=== PATIENT | female | born 1970 | race Caucasian/White ===

== ENCOUNTER 2016-11-13 17:19 | Emergency (ER) | payer SELFPAY ==
[~2016-11-13] VITALS: Ht 152.4 cm; Wt 55.0 kg
[~2016-11-13 17:19] MED LIST: [UNRECOGNIZED DRUG - REMARK]
[2016-11-13] MEDS ORDERED: HYDROmorphone 1 MG/ML, 1ML IVPush PRN (18:00)
[2016-11-13] MEDS ORDERED: ONDANSETRON 2MG/ML, 2ML IVPush ONE (18:00)
[2016-11-13] MEDS ORDERED: SODIUM CHLORIDE 0.9% 1,000ML IVBOLUS ONE (18:00)
[2016-11-13] MEDS ORDERED: SODIUM CHLORIDE FLUSH 10ML SYR IVF ONE (18:00)
[2016-11-13] MEDS ORDERED: HYDROmorphone 1 MG/ML, 1ML ONE (18:08)
[2016-11-13] MEDS ORDERED: ONDANSETRON 2MG/ML, 2ML ONE (18:08)
[2016-11-13 18:19] LABS: PH, VENOUS 7.371 pH (7.320-7.420)
[2016-11-13 18:21] LABS: BLOOD UREA NITROGEN 10 mg/dL (7-18)
[2016-11-13 18:29] LABS: PATH.CAST-FLAG NOT PRESENT; SPERM-FLAG NOT PRESENT; SRC-FLAG NOT PRESENT; XTAL-FLAG NOT PRESENT; YLC-FLAG NOT PRESENT
[2016-11-13] MEDS ORDERED: OMNIPAQUE 350 MG/ML, 100ML BOTTLE ONE (18:57)
[2016-11-13 19:23] VITALS: BP 137/66
== END 2016-11-13 20:11 | disposition home or self-care (01) ==
LOC: ED 20:01
DX: K12.0 Recurrent oral aphthae (principal); N30.90 Cystitis, unspecified without hematuria; E11.65 Type 2 diabetes mellitus with hyperglycemia
CPT/HCPCS: 36415; 70491; 80048; 81001; 82010; 82040; 82803; 85025; 87086; 87147; 96361; 96374; 96375; 99285; J1170; J2405; J7030; Q9967

== ENCOUNTER 2017-08-01 12:42 | Emergency (ER) | payer OTHER ==
[~2017-08-01] VITALS: Ht 152.4 cm; Wt 57.2 kg
[2017-08-01] MEDS ORDERED: LINA5TAB PO (14:39)
[2017-08-01] MEDS ORDERED: LISI1TAB5 PO (14:39)
[2017-08-01 15:12] LABS: BASOPHILS # (AUTO) 0.05 x10^3/uL (0-0.1); BASOPHILS % (AUTO) 1 % (0-1); EOSINOPHILS # (AUTO) 0.19 x10^3/uL (0-0.4); EOSINOPHILS % (AUTO) 3 % (1-7); LYMPHOCYTES # (AUTO) 1.71 x10^3/uL (1-3.4); LYMPHOCYTES % (AUTO) 23 % (22-44); MD NO; MEAN CORPUSCULAR HGB CONC 33.9 g/dL (32.4-35.8); MEAN CORPUSCULAR VOLUME 88.8 fL (80-100); MEAN PLATELET VOLUME 9.4 fL (7.4-10.4); MONOCYTES # (AUTO) 0.42 x10^3/uL (0.2-0.8); MONOCYTES % (AUTO) 6 % (2-9); NEUTROPHILS % (AUTO) 69 % (42-75); PLATELET COUNT 277 x10^3/uL (130-400); RED BLOOD COUNT 5.02 x10^6/uL (3.82-5.3); RED CELL DISTRIBUTION WIDTH 12.3 % (9.6-15.2)
[2017-08-01 15:20] LABS: ALANINE AMINOTRANSFERASE 18 U/L (12-78); ANION GAP 8 mmol/L (5-15); CALCIUM 8.2 mg/dL (8.5-10.1); CHLORIDE 101 mmol/L (98-107); CREATININE 0.57 mg/dL (0.55-1.02)
[2017-08-01 15:23] LABS: ALKALINE PHOSPHATASE 123 U/L (45-117); BILIRUBIN,TOTAL 0.4 mg/dL (0.2-1.0); TOTAL PROTEIN 7.2 g/dL (6.4-8.2)
[2017-08-01 15:29] LABS: ACETONE, SERUM Negative (Negative)
[2017-08-01 15:50] LABS: HEMOGLOBIN A1C 13.2 % (4.2-6.3)
[2017-08-01] MEDS ORDERED: SODIUM CHLORIDE 0.9% 1,000ML IVBOLUS ONE (16:00)
[2017-08-01] MEDS ORDERED: SODIUM CHLORIDE FLUSH 10ML SYR IVF ONE (16:00)
[2017-08-01] MEDS ORDERED: INSULIN REGULAR 100 UNITS/ML, 3ML VIAL SQ-INSULIN SCH (16:00)
[2017-08-01] MEDS ORDERED: INSULIN REGULAR 100 UNITS/ML, 3ML VIAL ONE (16:15)
[2017-08-01 16:50] LABS: MICROSCOPIC AUTO
[2017-08-01 16:51] LABS: CULTURE INDICATED? YES
[2017-08-01] MEDS ORDERED: SODIUM CHLORIDE 0.9% 1,000 ML IV ONE (17:00)
[2017-08-01 17:41] VITALS: BP 121/71
== END 2017-08-01 17:43 | disposition home or self-care (01) ==
LOC: ED 15:16
DX: E11.65 Type 2 diabetes mellitus with hyperglycemia (principal); I10 Essential (primary) hypertension; Z79.4 Long term (current) use of insulin
CPT/HCPCS: 36415; 80053; 81001; 82010; 82800; 82962; 83036; 83690; 85025; 87086; 93005; 96360; 96372; 99285; J7030